=== PATIENT | male | born 1965 | race Hispanic/Latino ===

== ENCOUNTER 2017-04-17 15:41 | Observation (INO) | payer BC ==
[2017-04-17 16:19] LABS: #Eosinphils 0.3 thou/uL (0.0-0.7); #Lymphocytes 2.1 thou/uL (1.20-3.40); #Monocytes 0.7 thou/uL (0.11-0.59); #Neutrophils 5.8 thou/uL (1.40-6.50); %Basophils 0.4 % (0.0-1.0); %Eosinophils 3.4 % (0.0-10.0); %Lymphocytes 23.3 % (21.0-51.0); %Monocytes 8.1 % (0.0-10.0); %Neutrophils 64.8 % (42.0-75.0); Hemoglobin 12.5 g/dL (14.0-18.0); Mean Corpuscular HGB CONC 33.7 g/dL (32.0-36.0); Mean Corpuscular Hemoglobin 29.3 pg (27.0-31.0); Mean Corpuscular Volume 86.9 fl (80.0-94.0); Mean Platelet Volume 6.9 fL (7.4-10.4); Platelet Count 385 thou/uL (130-400); Red Blood Cell (RBC) Count 4.29 mill/uL (4.70-6.10)
[2017-04-17 16:42] LABS: ALT (SGPT) 21 U/L (8-55); AST (SGOT) 24 U/L (5-34); Albumin 2.5 g/dL (3.5-5.0); Alkaline Phosphatase 99 U/L (40-150); Anion Gap 11 mmol/L (10-20); BUN (Urea Nitrogen) 29 mg/dL (8.4-25.7); Bilirubin, Total 0.2 mg/dL (0.2-1.2); CK (CPK) 494 U/L (30-200); Calc. Creatinine Clearance 0 mL/min (70-130); Calcium 8.7 mg/dL (7.8-10.44); Carbon Dioxide 24 mmol/L (22-29); Chloride 104 mmol/L (98-107); Estimated GFR-MDRD 45; Globulin 3.8 g/dL (2.4-3.5); Glucose 145 mg/dL (70-105); Potassium 4.5 mmol/L (3.5-5.1); Protein, Total 6.3 g/dL (6.0-8.3); Sodium 134 mmol/L (136-145)
[2017-04-17 16:48] LABS: CKMB 7.4 ng/mL (0-6.6)
--- NOTE | 2017-04-17 17:36 | RAD ---
PORTABLE CHEST 04/17/17 HISTORY: Shortness of breath and chest pain. Heart size is within normal limits for portable technique. The lungs are clear of infiltrates. There are no signs of failure. IMPRESSION: No acute intrathoracic disease. POS: [facility]
[2017-04-17 18:41] LABS: Bilirubin Negative (Negative); Blood, Urine Moderate (Negative); Clarity CLEAR (Clear); Glucose, Urine (Dipstick) 100 mg/dL (Negative); Leukocyte Negative (Negative); Nitrite Negative (Negative); Protein, Urine (Dipstick) > or equal to 300 mg/dL (Neg-Trace); Specific Gravity, Urine 1.016 (1.002-1.036); Urobilinogen 0.2 mg/dL (0.2-1.0)
[2017-04-17 18:43] LABS: Bacteria/HPF None Seen HPF (None Seen); Hyaline Casts/LPF 0-3 HYALINE CAST LPF (0-3 Hyaline); Pathc Cast-AUWi Flag 0.13 (0-2.49); Squamous Epithelial 0-3 HPF (0-3); WBC/HPF 0-3 HPF (0-3)
[2017-04-17] MEDS ORDERED: Ondansetron ODT 4 MG TAB SL PRN (21:38)
[2017-04-17] MEDS ORDERED: Ondansetron HCl/PF 4 MG/2 ML Vial IVP PRN ×2 (21:38→23:26)
[2017-04-17 22:03] VITALS: BMI 31.3
[2017-04-17] MEDS ORDERED: Acetaminophen 500 MG TAB PO PRN (23:16)
[2017-04-17 23:22] LABS: Troponin I 0.021 ng/mL (< 0.028)
[2017-04-17] MEDS ORDERED: Dextrose 50% Abboject 50 ML SYRINGE SLOW IVP PRN (23:26)
[2017-04-17] MEDS ORDERED: hydrALAZINE 20 MG/ML VIAL SLOW IVP PRN (23:26)
[2017-04-17] MEDS ORDERED: HumaLOG 300 UNITS/3 ML VIAL SC PRN ×2 (23:26)
[2017-04-17] MEDS ORDERED: Ondansetron ODT 4 MG TAB PO PRN (23:26)
[2017-04-17] MEDS ORDERED: cloNIDine 0.1 MG TAB PO PRN (23:26)
[2017-04-17] MEDS ORDERED: Dextrose 5% in Water 1,000 ML IV PRN (23:26)
[2017-04-17] MEDS: Acetaminophen 500 MG TAB PO PRN (23:53)
--- NOTE | 2017-04-18 02:00 | HP ---
DATE OF ADMISSION: 04/17/2017 PRIMARY CARE PHYSICIAN: Dr. Merna Shepherd. CHIEF COMPLAINT: Lower extremity swelling. HISTORY OF PRESENT ILLNESS: This is a 51-year-old male mainly Czech speaking, who present ed to the [facility] in transfer from Dr. Merna Shepherd's office for evaluation of lower extremity edema and concerned for possible congestive heart failure. Patient denies any hi story of congestive heart failure. Patient does admit to a significant history of diabetes mellitus type 2 with associated neuropathy and chronic kidney disease. Patient admits to some cough, no fever with mild increased shortness of breath over the last 24-48 hours. Patient denied any abdominal geeta n, diarrhea, blood in the stool, or hemoptysis. Patient states he tried no specific alleviating fact ors at home. Patient states the swelling makes his feet feel tight and somewhat heavy, but denied an y specific fever, open wounds, or recent trauma or injury. In the emergency room, patient underwent chest imaging showing no acute cardiopulmonary process or edema. BNP was evaluated and noted at 63. Patient was noted with elevated creatinine with estimated GFR of 45. Patient was referred to the spitalist service for evaluation. PAST MEDICAL HISTORY: 1. 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 2. Hypertension. 3. History of nocturia. 4. Hyperlipidemia. 5. Chronic back pain. 6. History of cellulitis/abscess of the toes. PAST SURGICAL HISTORY: Reviewed and negative. CURRENT MEDICATIONS: 1. Ezetimibe 10 mg 1 tab p.o. daily. 2. Amaryl 2 mg p.o. q.a.m. 3. Glargine insulin 16 units subcutaneously daily. 4. Linagliptin/metformin 07/999 mg 1 tablet p.o. daily. 5. Losartan 100 mg 1 tab p.o. daily. 6. Zocor 20 mg p.o. at bedtime. ALLERGIES: No known drug allergies. FAMILY HISTORY: Positive for diabetes mellitus. SOCIAL HISTORY: Patient resides in the [place], [place] area. No current alcohol, tobacco, or illicit d rug use. REVIEW OF SYSTEMS: The following complete review of systems was otherwise negative, except as stated per HPI: Constitutional: Weight loss or gain, ability to conduct usual activities. Skin: Rash, i tching. Eyes: Double vision, pain. ENT/Mouth: Nose bleeding, neck stiffness, pain, tenderness. C ardiovascular: Palpitations, dyspnea on exertion, orthopnea. Respiratory: Shortness of breath, whe ezing, cough, hemoptysis, fever, or night sweats. Gastrointestinal: Poor appetite, abdominal pain, heartburn, nausea, vomiting, constipation, or diarrhea. Genitourinary: Urgency, frequency, dysuria, nocturia. Musculoskeletal: Pain, swelling. Neurologic/Psychiatric: Anxiety, depression. Allergy /Immunologic: Skin rash, bleeding tendency. PHYSICAL EXAMINATION: VITAL SIGNS: On admission blood pressure 207/94, pulse 98, respiratory rate 16, temperature 98.5 deg abraham Fahrenheit, O2 saturation 97% on room air. GENERAL APPEARANCE: This is a 51-year-old male, alert and oriented x3, pleasant, conversant in no acute distress. HEENT: Pupils are equal, round, and reactive to light and accommodation. Extraocular muscles are in tact. No scleral icterus, no conjunctival injection. Nares patent. OP is clear. Teeth in fair rep air. NECK: Supple, no cervical adenopathy, no thyromegaly, no carotid bruits, no JVD appreciated. Cervic al spine with full active and passive range of motion. CHEST: Occasional wheezing noted otherwise, clear to auscultation bilaterally. CARDIOVASCULAR: S1, S2 without noted murmur. ABDOMEN: Rounded, soft, nontender, nondistended. Bowel sounds are positive in all four quadrants. There is no hepatosplenomegaly, no abdominal bruits, no rebound or guarding appreciated. EXTREMITIES: Bilateral pitting edema to the knees. Pulses diminished, but palpable distally at the dorsalis pedis, posterior tibial, and popliteal arteries bilaterally. Capillary refill less than 2 s econds. Diminished hair on the lower extremities. Dystrophic nails of the toes. No open ulceration noted on the plantar aspect of the feet. NEUROLOGIC: Cranial nerves II-XII are grossly intact. No focal or lateralizing signs appreciated. PERTINENT LABORATORY AND X-RAY FINDINGS: Sodium 134, potassium 4.5, chloride 104, CO2 of 24, BUN 29, creatinine 1.62 with estimated GFR of 45, glucose 145, calcium 8.7. LFTs within normal limits. Tot al CK of 494. Troponin negative x1. BNP 63, albumin 2.5. CBC showed a white blood cell count of 9. 0, hemoglobin 12.5, hematocrit 37.2, platelet count 385 with normal differential. Urinalysis showed greater than 300 protein. Positive glucose, moderate blood with 11-20 rbc's per high power field. P ortable chest x-ray dated 04/17/2017 showed no acute cardiopulmonary process. EKG dated 04/17/2017 b y my interpretation shows sinus mechanism with heart rates in the 90s. Normal R-wave progression not ed in the precordial leads. Normal axis. No acute ST-T wave changes appreciated. ASSESSMENT AND PLAN: 1. Bilateral lower extremity edema. Patient will be placed on observation status. Suspect edema ma y be related to nephrotic syndrome and chronic kidney disease. Current BNP within normal limits. We will check 2D transthoracic echocardiogram for comprehensive evaluation. Continue field technical specialist ing. 2. Question of nephrotic syndrome. 3. Chronic kidney disease, stage 3 with questionable nephrotic syndrome. We will consult Nephrology Service in the a.m. for evaluation. Hold Amaryl and metformin. 4. Diabetes mellitus, type 2 insulin requiring with peripheral neuropathy/nephropathy. Insulin slid ing scale for reflexive coverage. Resume home regimen to include glargine insulin 16 units subcutane ously daily. Accu-Cheks before meals and at bedtime. Check A1c level in the a.m. 5. Hypertension, labile. We will continue serial blood pressure monitoring. Resume home regimen to include losartan 100 mg p.o. daily. Patient may need additional titration of the antihypertensive r egimen after clinical evaluation. 6. Prophylaxis. Hold SCDs secondarily to lower extremity edema. Lovenox 30 mg subcutaneously q.24 hours. Pepcid 20 mg p.o. b.i.d. 7. Code status is FULL. Surrogate medical decision maker is patient's niece, Binta Roblero.
[2017-04-18 06:19] LABS: ALT (SGPT) 15 U/L (8-55); AST (SGOT) 24 U/L (5-34); Albumin 2.3 g/dL (3.5-5.0); Alkaline Phosphatase 85 U/L (40-150); Anion Gap 9 mmol/L (10-20); BUN (Urea Nitrogen) 27 mg/dL (8.4-25.7); Bilirubin, Total 0.2 mg/dL (0.2-1.2); Calc. Creatinine Clearance 67 mL/min (70-130); Calcium 8.7 mg/dL (7.8-10.44); Carbon Dioxide 26 mmol/L (22-29); Chloride 103 mmol/L (98-107); Estimated GFR-MDRD 46; Globulin 3.3 g/dL (2.4-3.5); Glucose 159 mg/dL (70-105); Potassium 4.2 mmol/L (3.5-5.1); Protein, Total 5.6 g/dL (6.0-8.3); Sodium 134 mmol/L (136-145)
[2017-04-18 06:36] LABS: Band 2 % (5-11); Eosinophils 1 % (0-10); Lymphocytes 28 % (21-51); MDiff Complete? YES; Mean Corpuscular HGB CONC 33.6 g/dL (32.0-36.0); Mean Corpuscular Hemoglobin 29.1 pg (27.0-31.0); Mean Corpuscular Volume 86.8 fl (80.0-94.0); Monocytes 3 % (0-10); Neutrophil 65 % (42-75); PLT Morphology Comment Appears Adequate; Platelet Count 344 thou/uL (130-400); RBC Distribution Width 12.1 % (11.5-14.5); RBC Morphology Normal; Reactive Lymphocytes 1 % (0-10); Red Blood Cell (RBC) Count 4.12 mill/uL (4.70-6.10); White Blood Cell (WBC) Count 7.8 thou/uL (4.8-10.8)
[2017-04-18] MEDS ORDERED: Insulin Detemir 100 UNITS/ML 16 UNITS in Pre-Filled Syringe 1 EACH SC SCH (09:00)
[2017-04-18] MEDS ORDERED: INSULIN GLARGINE HUM REC ANLOG 16 UNIT SQ SCH (09:00)
[2017-04-18] MEDS ORDERED: Famotidine 20 MG TAB PO SCH (09:00)
[2017-04-18] MEDS ORDERED: Enoxaparin Sodium 30 MG/0.3 ML SYRINGE SC SCH (09:00)
[2017-04-18] MEDS ORDERED: Ezetimibe 10 MG TAB PO SCH (09:00)
[2017-04-18 09:03] LABS: Hemoglobin A1c 12.1 % (4.0-6.0)
[2017-04-18 09:14] LABS: Cardiac Risk 3.5 (Less than 4.5)
[2017-04-18] MEDS ORDERED: Furosemide 40 MG/4 ML VIAL SLOW IVP SCH ×2 (09:15→14:00)
[2017-04-18] MEDS: Acetaminophen 500 MG TAB PO PRN (09:24)
[2017-04-18 09:33] LABS: Hep C IgG Ab Non-Reactive (NonReactive); Hep C Index 0.11 S/CO (0-0.79)
--- NOTE | 2017-04-18 10:38 | PDOC.PN ---
- Subjective Encounter Start Date: 04/18/17 Encounter Start Time: 08:10 -: old records requested/rev Patient seen and examined. No new complaints. No overnight events - Objective Resuscitation Status: Resuscitation Status FULL:Full Resuscitation MAR Reviewed: Yes Vital Signs & Weight: Vital Signs (12 hours) Temp Pulse Resp BP BP Pulse Ox 04/18/17 08:12 97.7 F 90 16 183/89 H 94 L 04/18/17 04:15 97.8 F 96 14 160/89 H 96 04/18/17 00:50 98.1 F 100 16 04/17/17 23:56 95 191/93 H 04/17/17 23:47 95 16 191/93 H 95 Weight Weight 193 lb 14.4 oz I&O: 04/17/17 04/18/17 04/19/17 06:59 06:59 06:59 Intake Total 360 Output Total 1200 Balance -840 Result Diagrams: 04/18/17 05:12 04/18/17 05:12 Additional Labs: Accuchecks 04/18/17 00:25 POC Glucose 73 EKG Reviewed by me: Yes (nsr) Phys Exam - Physical Examination Constitutional: NAD HEENT: PERRLA, moist MMs, sclera anicteric Neck: no JVD, supple Respiratory: no wheezing, no rales, no rhonchi Cardiovascular: RRR, no significant murmur, no rub Gastrointestinal: soft, non-tender, no distention, positive bowel sounds Musculoskeletal: edema present Neurological: non-focal, normal sensation, moves all 4 limbs Psychiatric: normal affect, A&O x 3 Skin: no rash, normal turgor Dx/Plan (1) Edema of both legs Code(s): R60.0 - LOCALIZED EDEMA Status: Acute (2) Proteinuria due to type 2 diabetes mellitus Code(s): E11.29 - TYPE 2 DIABETES MELLITUS W OTH DIABETIC KIDNEY COMPLICATION; R80.9 - PROTEINURIA, UNSPECIFIED Status: Acute (3) Rhabdomyolysis Code(s): M62.82 - RHABDOMYOLYSIS Status: Acute (4) CKD (chronic kidney disease) stage 3, GFR 30-59 ml/min Code(s): N18.3 - CHRONIC KIDNEY DISEASE, STAGE 3 (MODERATE) Status: Chronic (5) Chronic low back pain Code(s): M54.5 - LOW BACK PAIN; G89.29 - OTHER CHRONIC PAIN Status: Chronic (6) Diabetes type 2, controlled Code(s): E11.9 - TYPE 2 DIABETES MELLITUS WITHOUT COMPLICATIONS Status: Chronic (7) Dyslipidemia Code(s): E78.5 - HYPERLIPIDEMIA, UNSPECIFIED Status: Chronic (8) Hypertension Code(s): I10 - ESSENTIAL (PRIMARY) HYPERTENSION Status: Chronic (9) Obesity (BMI 30.0-34.9) Code(s): E66.9 - OBESITY, UNSPECIFIED Status: Chronic - Plan cont current plan of care * check urine protein /creatinine ratio * echo pending * edema is likley due to nephrotic syndrome * continue lasix * nephrology consulted * medication reviewed as below * symptomatic treatment. * possible discharge today or tomorrow based on nephrology * discussed with educational sign language interpreter phone Review of Systems - Review of Systems Eyes: negative: Pain, Vision Change, Conjunctivae Inflammation, Eyelid Inflammation, Redness, Other ENT: negative: Ear Pain, Ear Discharge, Nose Pain, Nose Discharge, Nose Congestion, Mouth Pain, Mouth Swelling, Throat Pain, Throat Swelling, Other Respiratory: negative: Cough, Dry, Shortness of Breath, Hemoptysis, SOB with Excertion, Pleuritic Pain, Sputum, Wheezing Cardiovascular: edema. negative: chest pain, palpitations, orthopnea, paroxysmal nocturnal dyspnea, light headedness, other Gastrointestinal: negative: Nausea, Vomiting, Abdominal Pain, Diarrhea, Constipation, Melena, Hematochezia, Other Genitourinary: negative: Dysuria, Frequency, Incontinence, Hematuria, Retention , Other Musculoskeletal: negative: Neck Pain, Shoulder Pain, Arm Pain, Back Pain, Hand Pain, Leg Pain, Foot Pain, Other Skin: negative: Rash, Lesions, Roberto, Bruising, Other - Medications/Allergies Allergies/Adverse Reactions: Allergies Allergy/AdvReac Type Severity Reaction Status Date / Time No Known Allergies Allergy Unverified 04/17/17 21:25 Medications: Current Medications Acetaminophen (Tylenol) 1,000 mg PO Q6H PRN PRN Reason: Headache/Fever or Mild Pain Last Admin: 04/18/17 09:24 Dose: 1,000 mg Clonidine (Catapres) 0.1 mg PO Q4H PRN PRN Reason: Systolic BP > 180 Last Admin: 04/18/17 09:24 Dose: 0.1 mg Dextrose/Water (Dextrose 50%) 25 gm SLOW IVP PRN PRN PRN Reason: Hypoglycemia Ezetimibe (Zetia) 10 mg PO DAILY [facility] Last Admin: 04/18/17 09:23 Dose: 10 mg Enoxaparin Sodium (Lovenox) 30 mg SC 0900 [facility] Last Admin: 04/18/17 09:27 Dose: 30 mg Famotidine (Pepcid) 20 mg PO BID [facility] Last Admin: 04/18/17 09:24 Dose: 20 mg Furosemide (Lasix) 40 mg SLOW IVP ONE [facility] Stop: 04/18/17 11:00 Furosemide (Lasix) 40 mg SLOW IVP 0600,1400 [facility] Glucagon (Glucagon) 1 mg IM PRN PRN PRN Reason: Hypoglycemia Hydralazine HCl (Apresoline) 10 mg SLOW IVP Q4H PRN PRN Reason: Systolic BP > 180 Last Admin: 04/17/17 23:56 Dose: 10 mg Dextrose/Water (D5w) 1,000 mls @ 0 mls/hr IV .Q0M PRN; As Directed PRN Reason: Hypoglycemia Insulin Detemir 16 units/ (Miscellaneous Medication) 0.16 mls @ 0 mls/hr SC QAM [facility] PRN Reason: As Directed Last Admin: 04/18/17 09:28 Dose: 0.16 mls Insulin Human Lispro (Humalog) 0 units SC .MILD SLIDING SCALE PRN PRN Reason: Mild Correctional Scale Insulin Human Lispro (Humalog) 0 units SC .BEDTIME SLIDING SC PRN PRN Reason: Bedtime Correctional Scale Ondansetron HCl (Zofran Odt) 4 mg PO Q6H PRN PRN Reason: Nausea/Vomiting Ondansetron HCl (Zofran) 4 mg IVP Q6H PRN PRN Reason: Nausea/Vomiting Simvastatin (Zocor) 20 mg PO QPM [facility] Sodium Chloride (Flush - Normal Saline) 10 ml IVF Q12HR [facility] Last Admin: 04/18/17 09:31 Dose: 10 ml Sodium Chloride (Flush - Normal Saline) 10 ml IVF PRN PRN PRN Reason: Saline Flush
[2017-04-18 11:36] LABS: Creatinine, Urine 36.49 mg/dL (63-166)
--- NOTE | 2017-04-18 11:42 | DIS ---
DATE OF ADMISSION: 04/17/2017 DATE OF DISCHARGE: 04/18/2017 PRIMARY CARE PHYSICIAN: Merna Shepherd M.D. DISCHARGE DISPOSITION: Home. PRIMARY DISCHARGE DIAGNOSES: 1. Bilateral lower extremity edema likely due to hypoalbuminemia secondary to nephrotic range protei isabelle from diabetes type 2. 2. Rhabdomyolysis. SECONDARY DISCHARGE DIAGNOSES: Obesity with body mass index 31, hypertension, dyslipidemia, diabetes type 2, diabetic nephropathy, chronic kidney disease stage 3, chronic low back pain. PRIMARY PROCEDURE/OPERATION: None. RADIOLOGICAL INVESTIGATION: Chest x-ray was normal. SIGNIFICANT LABORATORY DATA: Hemoglobin 12.0, creatinine 1.58. Hemoglobin A1c 12.1. LFT normal. L DL 53. TSH 3.57. Cardiac enzymes negative, albumin 2.3. Urinalysis showed proteinuria. Hepatitis C surface antigen negative. DISCHARGE MEDICATIONS: Zetia 10 mg p.o. daily, Lasix 40 mg p.o. daily, Amaryl 2 mg p.o. daily, Lantu s 16 units subcu daily, Jentadueto one tablet p.o. daily, Losartan 100 mg p.o. daily, Zocor 20 mg p.o . at bedtime. CONTRAINDICATIONS: None. CODE STATUS: FULL CODE. INPATIENT PROCUREMENT INTERN: Dr. Anguiano was consulted while in hospital. TEST RESULTS PENDING ON DISCHARGE: None. ALLERGIES: No known drug allergy. DISCHARGE PLAN: Post hospital, patient will follow up with Dr. Anguaino and Dr. Merna Shepherd as in structed. HOSPITAL COURSE: A 51-year-old male who has a long history of diabetes and hypertension who was followed by primary care physician yesterday and patient was found with bilateral lower extremit y edema and that is why primary care physician was worried about CHF and sent him to ER. After ER vi sit, patient was admitted in hospital. His BNP is normal. His cardiac enzymes negative. The patien t had significant proteinuria and we are suspecting his edema is related with hypoalbuminemia from ne phrotic range proteinuria secondary to diabetes. Dr. Anguiano saw this patient and we gave him Las ix. On discharge, we also prescribed Lasix. Rest of medication, he will continue as per previous. He needs to follow up with primary care physician and Nephrology as an outpatient basis. We are shanita g to obtain echocardiography during this admission. We are waiting for the echo result. This patien t possibly can be discharged home later on today if Nephrology okay. The patient is seen and examined at bedside today. Please see my progress note from today for buddy r vannessa.
--- NOTE | 2017-04-18 14:36 | CON ---
DATE OF CONSULTATION: 04/18/2017 CONSULTING PHYSICIAN: Dr. Annmarie Puente REQUESTING PHYSICIAN: Dr. Bonner/Dr. Monroy. REASON FOR CONSULTATION: Bilateral leg swelling with significant proteinuria. IMPRESSION: Severe proteinuria, likely resulting in peripheral edema. This I do believe is likely d ue to diabetic nephropathy, but have not completely ruled out other potential nephritic disease inclu ding cryoglobulin induced membrane nephropathy in the context of hepatitis C and other viral etiology . PLAN: 1. IV diuretics and patient on discharge to be on loop diuretics b.i.d. 2. Low salt diet. 3. Viral serology. 4. Quantify the degree of proteinuria in this patient and check also for the degree of how controlle d the diabetes of this patient is with hemoglobin A1c and advise accordingly. HISTORY OF PRESENT ILLNESS: History is that of a 51-year-old gentleman who presented here with bilat eral leg swelling. The patient noted to have significant proteinuria. The patient is a diabetic. A s a result of these findings, the decision has been taken to involve Renal in the management of this case. PAST MEDICAL HISTORY: Significant for hypertension, type 2 diabetes, dyslipidemia, nocturia, chronic back pain. MEDICATIONS: Reviewed and as documented on [facility]. ALLERGIES: No known drug allergies. FAMILY HISTORY: None significantly related to presenting illness. SOCIAL HISTORY: No alcohol, no tobacco, no illicit drug use. REVIEW OF SYSTEMS: As documented in the body of the history. All the other systems were reviewed an d found not to be significantly related to the presenting illness. PHYSICAL EXAMINATION: GENERAL: The patient was found not to be in any obvious distress. VITAL SIGNS: Afebrile with temperature 98.1, pulse 93. Respiratory rate 15, O2 sat 97%, blood press ure 118/76. HEENT: Unremarkable with moist oral mucosa. Neck is supple. No conjunctival injection or icterus. CARDIOVASCULAR SYSTEM: First and second heart sounds were heard. RESPIRATORY SYSTEM: Clear to auscultation. DIGESTIVE SYSTEM: Revealed a benign abdomen. EXTREMITIES: Showed 2+ bilateral lower extremity edema. SKIN: No new gross rash. LYMPHATICS: No peripheral lymphadenopathy. SUMMARY: A 51-year-old gentleman who presented here with both legs swollen in the context of possibl e diabetic nephropathy. Thank you for this consultation. We will follow with you.
[2017-04-18 16:09] VITALS: BP 155/78; TEMP 97.9
[2017-04-18] MEDS ORDERED: Furosemide 40 MG TAB PO SCH (17:30)
[2017-04-18] MEDS ORDERED: Simvastatin 20 MG TAB PO SCH (21:00)
[2017-04-20 19:13] LABS: Hep B Surface AG-Rflx Sendout Negative (Negative); Hepatitis B Core IgM AB Negative (Negative); Hepatitis B Core Total Negative (Negative); Hepatitis B Surface AB-Sendout Non Reactive (.)
--- NOTE | 2017-04-21 12:25 | EKG ---
Test Reason : ER INDICATION Blood Pressure : / mmHG Vent. Rate : 096 BPM Atrial Rate : 096 BPM P-R Int : 156 ms QRS Dur : 088 ms QT Int : 344 ms P-R-T Axes : 012 034 037 degrees QTc Int : 434 ms Normal sinus rhythm Normal ECG Confirmed by CARIE COLLAZO M.D. ([id number]), multimedia editor KERMIT GARVIN ([id number]) on 04/21/2017 12:25:19 PM Referred By: Confirmed By:CARIE COLLAZO M.D.
== END 2017-04-18 18:29 | disposition home or self-care (01) ==
LOC: ERS 15:41 → 2SW 21:14
PROVIDERS: ADMIT Internal Medicine; ATTEND Internal Medicine
DX: E11.21 Type 2 diabetes mellitus with diabetic nephropathy (principal); R80.8 Other proteinuria; E88.09 Other disorders of plasma-protein metabolism, not elsewhere classified; R60.0 Localized edema; M62.82 Rhabdomyolysis; I12.9 Hypertensive chronic kidney disease with stage 1 through stage 4 chronic kidney disease, or unspecified chronic kidney disease; E11.22 Type 2 diabetes mellitus with diabetic chronic kidney disease; N18.3 Chronic kidney disease, stage 3 (moderate); E11.42 Type 2 diabetes mellitus with diabetic polyneuropathy; G89.29 Other chronic pain; E66.9 Obesity, unspecified; Z68.31 Body mass index [BMI] 31.0-31.9, adult; Z79.899 Other long term (current) drug therapy
CPT/HCPCS: 36415; 36416; 71045; 80053; 80061; 81003; 81015; 82553; 82570; 83036; 83880; 84156; 84443; 84484; 85007; 85025; 85027; 86704; 86705; 86706; 86707; 86803; 87340; 87350; 90471; 90732; 93005; 93306; 94760; 96372; 96374; 96375; 96376; G0009; G0378; J0360; J1650; J1815; J1940

== ENCOUNTER 2017-09-07 09:57 | Observation (INO) | payer BC ==
[2017-09-07 10:31] LABS: #Basophils 0.1 thou/uL (0.0-0.2); #Eosinphils 0.2 thou/uL (0.0-0.7); #Lymphocytes 1.5 thou/uL (1.20-3.40); #Monocytes 1.2 thou/uL (0.11-0.59); #Neutrophils 11.3 thou/uL (1.40-6.50); %Basophils 0.5 % (0.0-1.0); %Eosinophils 1.2 % (0.0-10.0); %Lymphocytes 10.5 % (21.0-51.0); %Monocytes 8.3 % (0.0-10.0); %Neutrophils 79.4 % (42.0-75.0); Hemoglobin 11.5 g/dL (14.0-18.0); Mean Corpuscular HGB CONC 32.8 g/dL (32.0-36.0); Mean Corpuscular Hemoglobin 28.9 pg (27.0-31.0); Mean Platelet Volume 7.1 fL (7.4-10.4); Platelet Count 312 thou/uL (130-400); RBC Distribution Width 12.4 % (11.5-14.5); Red Blood Cell (RBC) Count 3.98 mill/uL (4.70-6.10); White Blood Cell (WBC) Count 14.3 thou/uL (4.8-10.8)
[2017-09-07 10:56] LABS: ALT (SGPT) 22 U/L (8-55); AST (SGOT) 23 U/L (5-34); Albumin 2.9 g/dL (3.5-5.0); Alkaline Phosphatase 85 U/L (40-150); Anion Gap 13 mmol/L (10-20); BUN (Urea Nitrogen) 52 mg/dL (8.4-25.7); Bilirubin, Total Less than 0.2 mg/dL (0.2-1.2); Calc. Creatinine Clearance 0 mL/min (70-130); Calcium 8.3 mg/dL (7.8-10.44); Carbon Dioxide 18 mmol/L (22-29); Chloride 108 mmol/L (98-107); Estimated GFR-MDRD 36; Globulin 3.6 g/dL (2.4-3.5); Glucose 101 mg/dL (70-105); Potassium 4.5 mmol/L (3.5-5.1); Protein, Total 6.5 g/dL (6.0-8.3); Sodium 134 mmol/L (136-145)
[2017-09-07 11:00] LABS: Troponin I Less than 0.010 ng/mL (< 0.028)
[2017-09-07 11:09] LABS: CKMB 14.1 ng/mL (0-6.6)
[2017-09-07] MEDS ORDERED: Loratadine 10 MG TAB PO PRN (12:24)
[2017-09-07] MEDS ORDERED: Dextrose 5% in Water 1,000 ML IV PRN (12:24)
[2017-09-07] MEDS ORDERED: Senokot 8.6 MG TAB PO PRN (12:24)
[2017-09-07] MEDS ORDERED: Dextrose 50% Abboject 50 ML SYRINGE SLOW IVP PRN (12:24)
[2017-09-07] MEDS ORDERED: Bisacodyl 5 MG TAB PO PRN (12:24)
[2017-09-07] MEDS ORDERED: Ondansetron HCl/PF 4 MG/2 ML Vial IVP PRN (12:24)
[2017-09-07] MEDS ORDERED: Nitroglycerin 0.4 MG TAB (25 Tab Bottle) SL PRN (12:24)
[2017-09-07] MEDS ORDERED: HumaLOG 300 UNITS/3 ML VIAL SC PRN ×2 (12:24)
[2017-09-07] MEDS ORDERED: Benzonatate 100 MG CAP PO PRN (12:24)
[2017-09-07] MEDS ORDERED: Calcium Carbonate 500 MG ChewTAB PO PRN (12:24)
[2017-09-07] MEDS ORDERED: Mag-Al 1200 mg/1200 mg/30 ML UDCUP PO PRN (12:24)
[2017-09-07] MEDS ORDERED: Lorazepam 1 MG TAB PO PRN (12:24)
[2017-09-07] MEDS ORDERED: hydrALAZINE 20 MG/ML VIAL SLOW IVP PRN (12:24)
[2017-09-07] MEDS ORDERED: Acetaminophen 325 MG TAB PO PRN (12:24)
--- NOTE | 2017-09-07 12:42 | RAD ---
PA AND LATERAL CHEST: History: Altered mental status. Hypoglycemia, blood sugar at 39. FINDINGS: The heart size is normal. The lungs are expanded without lobar consolidation, pneumothoraces, or pleu ral effusions. No acute osseous abnormalities are seen. IMPRESSION: No radiographic evidence of acute cardiopulmonary process. POS: [facility]
--- NOTE | 2017-09-07 14:11 | HP ---
PRIMARY CARE PHYSICIAN: Merna Shepherd M.D. CHIEF COMPLAINT: Not feeling well. HISTORY OF PRESENT ILLNESS: Mr. Dawn is a 52-year-old male with known history of chronic kidney di sease, diabetes mellitus type 2, dyslipidemia, and hypertension, who presented to the emergency room with above-mentioned complaint: History is mainly obtained by the patient himself and discussed with admitting ER physician, Dr. Avendano. According to the ER physician, the patient was brought in by his coworkers today. They worked outsid e. The coworkers noticed that around 6:30 this morning. There was something wrong. He was looking lethargic and barely responsive and would not open eyes for them. They called the doctor's office an d were told to bring him to the emergency room. Upon presentation, his blood sugar was low with bloo d levels of 65 this morning. The patient was given juice and his blood sugar improved. He underwent a general workup. He did tell the ER physician that normally he takes 60 units of insulin in the mo rning, but this morning, his blood sugar was 445, so he took units of insulin. Other than that, he h as some generalized complains of malaise, some chest pain, cough and subjective fevers. He also has mild abdominal pain without any diarrhea, nausea or vomiting. He denies any cough or runny nose. Further workup in the emergency room included blood work which shows WBC count elevated at 14.3 with 79% neutrophils. His blood sugar has improved to 194. His BUN and creatinine of 52 and 1.94, which seems a little up from his baseline around 1.52. His CPK is elevated to 559. Chest x-ray was done i n the emergency room and is unremarkable. Urinalysis has been ordered and is pending. He is now wilfrido ng admitted by the ER physician for monitoring of his blood sugar and making sure that his hypoglycem ic episodes do not occur. PAST MEDICAL HISTORY: 1. Hypertension. 2. Dyslipidemia. 3. Diabetes mellitus. 4. Chronic kidney disease likely secondary to diabetic nephropathy. 5. Chronic back pain. 6. History of cellulitis and abscess of the toes. PAST SURGICAL HISTORY: Reviewed and negative. CURRENT MEDICATIONS: Not available. The patient did say that he takes glipizide, insulin, and simva statin. Further needs to be confirmed. ALLERGIES: No known drug allergies. FAMILY HISTORY: Significant for diabetes mellitus. SOCIAL HISTORY: He has no history of drug, tobacco or alcohol abuse. He works outside REVIEW OF SYSTEMS: The following complete review of systems was negative, unless otherwise mentioned in the HPI or below: Constitutional: Weight loss or gain, ability to conduct usual activities. Sk in: Rash, itching. Eyes: Double vision, pain. ENT/Mouth: Nose bleeding, neck stiffness, pain, te nderness. Cardiovascular: Palpitations, dyspnea on exertion, orthopnea. Respiratory: Shortness of breath, wheezing, cough, hemoptysis, fever or night sweats. Gastrointestinal: Poor appetite, abdom inal pain, heartburn, nausea, vomiting, constipation, or diarrhea. Genitourinary: Urgency, frequenc y, dysuria, nocturia. Musculoskeletal: Pain, swelling. Neurologic/Psychiatric: Anxiety, depressio n. Allergy/Immunologic: Skin rash, bleeding tendency. A 12-point review of system is done and it is negative except for those mentioned in the history and physical. LABORATORY DATA: CBC shows WBC 14.3, platelet count of 312, hemoglobin 11.5, 79% neutrophils. Serum chemistry shows sodium 134, chloride 108, bicarbonate 18, BUN 52, creatinine 1.94, blood sugar has i mproved from 65-198. His creatinine kinase of 559. Troponin normal at 0.010. Albumin is 2.9. Ches t x-ray by my review has no evidence to suggest pleural effusion, edema or infiltrate. Twelve lead E KG by my review shows normal sinus rhythm, QTC interval [address] or T-wave obrien ges. PHYSICAL EXAMINATION: VITAL SIGNS: Upon presentation, blood pressure 155/70, pulse of 65, respirations 16, saturating 97% on room air, temperature 97.4. GENERAL: No acute distress, awake, alert, oriented x3. HEENT: Mucous membranes are slightly dry. No oropharyngeal exudate or erythema. Head is normocepha lic, atraumatic. Pupils equal, reactive to light and accommodation. Extraocular movement intact. NECK: Supple without any lymphadenopathy, JVD or bruit. CHEST: Clear to auscultation without any wheezing, rales or rhonchi. CARDIOVASCULAR: Rate and rhythm is regular without any murmur, rubs or gallops. ABDOMEN: Soft, nontender, nondistended, positive bowel sounds. EXTREMITIES: Show trace pitting edema bilaterally. NEUROLOGIC: Nonfocal. SKIN: Free of any rashes or bruises. Feels warm and dry to touch. PSYCHIATRIC: Normal affect. IMPRESSION AND PLAN: 1. Hypoglycemia, most likely secondary to an advertisement extra dose of insulin that he took this m orning. His blood sugar has been better for now. He will be admitted under observation status for m onitoring of his blood sugars. We will do q.2 hours blood sugars for now up until at least few more times and if it remains stable, then we will do a.c. and at bedtime blood sugar. We will hold his di abetic medications for now and use insulin sliding scale as needed. We will also check and rule out any evidence of infection given the patient has leukocytosis with left shift. A chest x-ray has been done and is negative. We will also check a urinalysis to rule out urinary tract infection. The pat ient is not having any abdominal symptoms or respiratory symptoms at this time. 2. Leukocytosis with left shift. The patient is afebrile and no signs or symptoms of infection. He will undergo evaluation as above. No indication for antibiotics for now. 3. Acute on chronic kidney insufficiency, most likely secondary to hyperglycemia and dehydration. H e will be started on gentle IV fluid hydration and we will monitor his renal function and avoid any n ephrotoxic agents. 4. Rhabdomyolysis. Most likely secondary to working in the heat outside. He will be started on IV fluids and we will repeat CPK in the morning. 5. Deep venous thrombosis and gastrointestinal prophylaxis. 6. Diabetes mellitus type 2, insulin sliding scale as above. 7. History of hypertension. Resume home medications once confirmed. Meanwhile, we will use p.r.n. antihypertensives for now. 8. Add deep venous thrombosis and gastrointestinal prophylaxis and p.r.n. medications. DISPOSITION: Mr. Dawn is currently being admitted for hypoglycemic episode secondary to inadverten t use of extra insulin dose this morning. He will also be evaluated for evidence of any infection an d will be treated for acute renal insufficiency and rhabdomyolysis. Estimated length of stay at this time is less than 2 midnights. Further management will depend upon his clinical course.
[2017-09-07 14:20] VITALS: BMI 28.8
[2017-09-07] MEDS: Sodium Chloride 0.9% 1,000 ML IV SCH (14:36)
[2017-09-07] MEDS: traMADol HCl 50 MG TAB PO PRN (15:23)
[2017-09-07] MEDS: cloNIDine 0.1 MG TAB PO PRN (15:23)
[2017-09-07] MEDS ORDERED: Simvastatin 20 MG TAB PO SCH (21:00)
[2017-09-07 21:44] LABS: Bilirubin Negative (Negative); Blood, Urine Moderate (Negative); Clarity CLEAR (Clear); Glucose, Urine (Dipstick) 250 mg/dL (Negative); Leukocyte Negative (Negative); Nitrite Negative (Negative); Protein, Urine (Dipstick) > or equal to 300 mg/dL (Neg-Trace); Specific Gravity, Urine 1.018 (1.002-1.036); Urobilinogen 0.2 mg/dL (0.2-1.0); pH, Urine 5.5 (5.0-9.0)
[2017-09-07 21:46] LABS: Bacteria/HPF None Seen HPF (None Seen); Hyaline Casts/LPF 4-6 HYALINE CAST LPF (0-3 Hyaline); Squamous Epithelial 0-3 HPF (0-3); WBC/HPF 0-3 HPF (0-3)
[2017-09-08] MEDS: Sodium Chloride 0.9% 1,000 ML IV SCH ×2 (00:27→10:07)
[2017-09-08] MEDS: cloNIDine 0.1 MG TAB PO PRN (04:08)
[2017-09-08] MEDS: traMADol HCl 50 MG TAB PO PRN (04:08)
[2017-09-08 05:46] LABS: #Basophils 0.1 thou/uL (0.0-0.2); #Eosinphils 0.3 thou/uL (0.0-0.7); #Lymphocytes 2.2 thou/uL (1.20-3.40); #Monocytes 0.6 thou/uL (0.11-0.59); #Neutrophils 6.3 thou/uL (1.40-6.50); %Basophils 0.6 % (0.0-1.0); %Eosinophils 3.3 % (0.0-10.0); %Lymphocytes 23.4 % (21.0-51.0); %Monocytes 6.5 % (0.0-10.0); %Neutrophils 66.2 % (42.0-75.0); Hemoglobin 10.1 g/dL (14.0-18.0); Mean Corpuscular HGB CONC 33.8 g/dL (32.0-36.0); Mean Corpuscular Hemoglobin 29.5 pg (27.0-31.0); Mean Corpuscular Volume 87.2 fL (78.0-98.0); Mean Platelet Volume 7.1 fL (7.4-10.4); Platelet Count 267 thou/uL (130-400); RBC Distribution Width 12.5 % (11.5-14.5); Red Blood Cell (RBC) Count 3.44 mill/uL (4.70-6.10); White Blood Cell (WBC) Count 9.6 thou/uL (4.8-10.8)
[2017-09-08 06:25] LABS: Anion Gap 10 mmol/L (10-20); BUN (Urea Nitrogen) 45 mg/dL (8.4-25.7); CK (CPK) 437 U/L (30-200); Calc. Creatinine Clearance 74 mL/min (70-130); Calcium 8.1 mg/dL (7.8-10.44); Carbon Dioxide 20 mmol/L (22-29); Estimated GFR-MDRD 50; Glucose 114 mg/dL (70-105); Potassium 4.9 mmol/L (3.5-5.1); Sodium 134 mmol/L (136-145)
[2017-09-08 06:27] LABS: Chloride 109 mmol/L (98-107)
[2017-09-08 08:10] VITALS: BP 145/79; TEMP 97.6
[2017-09-08] MEDS ORDERED: Valsartan 80 MG TAB PO SCH (09:00)
[2017-09-08] MEDS ORDERED: VALSARTAN PO SCH (09:00)
[2017-09-08] MEDS ORDERED: NEBIVOLOL HCL PO SCH (09:00)
[2017-09-08] MEDS ORDERED: Ezetimibe 10 MG TAB PO SCH (09:00)
[2017-09-08] MEDS ORDERED: Nebivolol HCl 5 MG TAB PO SCH (09:00)
[2017-09-08] MEDS ORDERED: Enoxaparin Sodium 40 MG/0.4 ML SYRINGE SC SCH (09:00)
--- NOTE | 2017-09-09 01:26 | DIS ---
DATE OF ADMISSION: 09/07/2017 DATE OF DISCHARGE: 09/08/2017 CONDITION AT THE TIME OF DISCHARGE: Stable and improved. DISCHARGE DIAGNOSES: 1. Hypoglycemia secondary to inadvertent use of extra insulin, resolved. 2. Musculoskeletal chest pain. 3. Rhabdomyolysis. 4. Leukocytosis, resolved, likely secondary to rhabdomyolysis. 5. Chronic kidney disease, stage 2. 6. Uncontrolled diabetes mellitus. 7. Hypertension. 8. Dyslipidemia. DISCHARGE MEDICATIONS: His home medications were adjusted as follows: Resume the following: valsartan 1 tablet daily 5/80 mg, Lasix 40 mg p.o. b.i.d. p.r.n., Zetia 10 mg daily, Zocor 20 mg reynaldo y. His insulin glargine dose was reduced from 50 mg once a day to 25 mg twice a day. His Humalog do se was continued at 10 mg t.i.d. His glimepiride dose was continued at 2 mg every morning and his __ ___ was discontinued. PRIMARY CARE PHYSICIAN: Merna Shepherd M.D. HISTORY OF PRESENTING ILLNESS: Mr. Dawn is a 52-year-old male with past medical history of diabete s, who was brought in by his coworkers for not feeling well. He was found to be hypoglycemic and pro vided history of taking extra dose of insulin because his blood sugar was high. He was admitted for observation. He was also found to have mild rhabdomyolysis upon presentation with creatine kinase of 859. His renal function was at baseline. He was hemodynamically stable. Please see admission hist ory and physical for further details. HOSPITAL COURSE: The patient was resuscitated with gentle IV fluids and was monitored closely. Insu hellen was reintroduced slowly and his blood sugar responded very well. He had no more hypoglycemic epi sodes in the hospital. Urinalysis was done, which did not show any evidence of infection. He had mi ld leukocytosis on presentation with WBCs of 14.3, which resolved with hydration and was normal on day of discharge. He did have some complaints of chest pain and was tender to palpation in the anterior chest likely a musculoskeletal pain leading to rhabdomyolysis or vice versa. He was given instruction to not do any heavy lifting or strenuous exercises as this is the second episode of rhabdomyolysis for him. His medications were adjusted as above. He did report that he has run out of his medications 2 days ago and wanted me to refill on all of them. At this time, he does not remember what he takes and wha t doses he takes, so I have done the medication reconciliation to the best of my knowledge that is in patient's best interest. He is instructed to follow up with Dr. Merna Shepherd in a week for a repeat blood sugar check and is instructed to check his blood sugar at least 2-3 times a day and keep a blo od sugar log. He was seen and examined prior to discharge. Discharge plan was discussed with him with the use of [employer] phone for [place]. All questions were answered and he verbalized understanding. PHYSICAL EXAMINATION: VITAL SIGNS: This morning, temperature 97.6, pulse 69, respirations 16, saturating 97% on room air, blood pressure 145/79. GENERAL: No acute distress. CHEST: Clear to auscultation bilaterally. Rate and rhythm is regular. EXTREMITIES: Free of any cyanosis, clubbing, or edema.
== END 2017-09-08 11:25 | disposition home or self-care (01) ==
LOC: ERS 09:57 → 2SW 13:51
PROVIDERS: ADMIT Internal Medicine; ATTEND Internal Medicine
DX: T38.3X1A Poisoning by insulin and oral hypoglycemic [antidiabetic] drugs, accidental (unintentional), initial encounter (principal); E11.649 Type 2 diabetes mellitus with hypoglycemia without coma; R07.89 Other chest pain; E11.22 Type 2 diabetes mellitus with diabetic chronic kidney disease; I12.9 Hypertensive chronic kidney disease with stage 1 through stage 4 chronic kidney disease, or unspecified chronic kidney disease; N18.2 Chronic kidney disease, stage 2 (mild); M62.82 Rhabdomyolysis; D72.829 Elevated white blood cell count, unspecified; E78.5 Hyperlipidemia, unspecified; Z79.4 Long term (current) use of insulin; Z79.899 Other long term (current) drug therapy
CPT/HCPCS: 36415; 36416; 71046; 80048; 80053; 81003; 81015; 82550; 82553; 84484; 85025; 93005; 96360; 96361; 96372; A4216; G0378; J1650